=== PATIENT | male | born 1960 | race Caucasian/White ===

== ENCOUNTER 2023-06-14 07:23 | Day surgery (SDC) | payer OTHER ==
[2023-06-07 15:27] LABS: BASOPHILS # (AUTO) 0.1 X10'3 (0-0.2); EOSINOPHILS # (AUTO) 0.3 X10'3 (0-0.9); EOSINOPHILS % (AUTO) 4.3 % (0-6); LYMPHOCYTES # (AUTO) 2.4 X10'3 (1.1-4.8); LYMPHOCYTES % (AUTO) 35.1 % (21-51); MEAN CORPUSCULAR HEMOGLOBIN 31.5 PG (27.0-31.0); MEAN CORPUSCULAR HGB CONC 33.5 g/dL (33.0-36.5); MEAN CORPUSCULAR VOLUME 94.1 FL (78-98); MEAN PLATELET VOLUME 7.6 FL (7.4-10.4); MONOCYTES # (AUTO) 0.7 X10'3 (0-0.9); MONOCYTES % (AUTO) 10.9 % (2-12); NEUTROPHILS # (AUTO) 3.3 X10'3 (1.8-7.7); NEUTROPHILS % (AUTO) 48.7 % (42-75); PRE OP HEMATOCRIT 43.1 % (42.0-52.0); PRE OP HEMOGLOBIN 14.4 g/dL (14.0-17.9); PRE OP PLATELET COUNT 342 X10'3 (140-440); PRE OP WHITE BLOOD COUNT 6.9 10'3 (4.8-10.8); RED BLOOD COUNT 4.58 X10'6 (4.70-6.10); RED CELL DISTRIBUTION WIDTH 13.2 % (11.5-14.5)
[2023-06-07 15:42] LABS: ALBUMIN 3.4 G/DL (3.4-5.0); ALBUMIN/GLOBULIN RATIO 0.8 (1.1-1.5); ALKALINE PHOSPHATASE 95 IU/L (46-116); BLOOD UREA NITROGEN 9 MG/DL (7-18); BUN/CREATININE RATIO 8.4 (10.0-20.0); CALCIUM 9.1 MG/DL (8.5-10.1); CHLORIDE 103 MMOL/L (99-107); CREATININE 1.07 MG/DL (0.60-1.10); PRE OP ANION GAP 7 (8-16); PRE OP AST 94 U/L (10-37); PRE OP BILIRUB, TOTAL 0.3 MG/DL (0.0-1.0); PRE OP POTASSIUM 3.9 MMOL/L (3.4-5.1); PRE OP SODIUM 138 MMOL/L (135-145); TOTAL CARBON DIOXIDE 27.9 MMOL/L (24-32); TOTAL PROTEIN 7.9 G/DL (6.4-8.2); eGFR 70 ML/MIN
[2023-06-07 16:04] LABS: PRE OP GLUCOSE 104 MG/DL (70-104)
[2023-06-07 16:05] LABS: PRE OP ALT 191 U/L (30-65)
[2023-06-14] VITALS (8 sets, daily range): BP systolic 114–132; BP diastolic 82–94; PULSE 66–87; RESP 12–19; TEMP 97.4; O2SAT 96–100
[~2023-06-14] VITALS: Ht 177.8 cm; Wt 110.1 kg
[~2023-06-14 07:23] MED LIST: NO HOME MEDS; clindamycin-Cleocin 900mg/D5W 50 ML IV ONE; famotidine 20mg tablet PO ONE; ringers solution, lacted 1,000 ML IV SCH
[2023-06-14] MEDS ORDERED: LIDOcaine 1% (10mg/ml)w/preservative inj. 20ml MDV ONE (09:11)
[2023-06-14] MEDS ORDERED: BUPIVAcaine 2.5mg/ml inj 50ml vial (contains preservative) ONE (09:11)
[2023-06-14] MEDS ORDERED: scopolamine 1MG/72H patch 1 PATCH PATCH.TD.3 TD ONE (09:57)
[2023-06-14] MEDS ORDERED: fentaNYL/PF 50MCG/1 ML 2ML syringe ONE (09:59)
[2023-06-14] MEDS ORDERED: midazolam 1 mg/ML 2ml injection ONE (10:00)
[2023-06-14] MEDS ORDERED: propofol inj 20 ML IV ONE (10:54)
[2023-06-14] MEDS ORDERED: dexamethasone sod phosphate 4mg/ml inj. ONE (10:54)
[2023-06-14] MEDS ORDERED: ondansetron/PF 4mg/2ml inj ONE (10:55)
[2023-06-14] MEDS ORDERED: morphine 4 MG/ML inj SYRINge IV PRN (11:05)
[2023-06-14] MEDS ORDERED: ondansetron/PF 4mg/2ml inj IV PRN (11:05)
[2023-06-14] MEDS ORDERED: meperidine/PF 25mg/ml syringe IV PRN ×3 (11:05)
[2023-06-14] MEDS ORDERED: morphine 2 MG/ML inj. syringe IV PRN (11:05)
[2023-06-14] MEDS ORDERED: ringers solution, lacted 1,000 ML IV SCH (11:05)
[2023-06-14] MEDS ORDERED: proCHLORperazine 10 MG/2 ml inj IV PRN (11:05)
[2023-06-14] MEDS ORDERED: ondansetron 4mg rapidly disintigrating tab PO PRN (11:20)
[2023-06-14] MEDS ORDERED: HYDROcodone/acetaminophen 5mg/325mg tablet PO PRN (11:20)
== END 2023-06-14 12:24 | disposition home or self-care (01) ==
LOC: PRE-OP 07:23 → PAS 12:24
PROVIDERS: ATTEND Surgery
DX: R59.1 Generalized enlarged lymph nodes (principal); E66.9 Obesity, unspecified; I25.2 Old myocardial infarction; Z98.890 Other specified postprocedural states; Z68.34 Body mass index [BMI] 34.0-34.9, adult; Z88.0 Allergy status to penicillin; Z88.1 Allergy status to other antibiotic agents; Z80.3 Family history of malignant neoplasm of breast; Z80.8 Family history of malignant neoplasm of other organs or systems
CPT/HCPCS: 36415; 38510; 80053; 82948; 85025; 93005; J1100; J2250; J2405; J2704; J3010; J3490; J7030; J7120; Z7506; Z7508; Z7512; A4215; A4618; A7000